=== PATIENT | male | born 1955 | race Two or more races ===

== ENCOUNTER 2024-07-08 07:23 | Inpatient (IN) | payer OTHER ==
[~2024-07-08] VITALS: Ht 180.3 cm; Wt 87.5 kg
[2024-07-08] MEDS ORDERED: ACETAZOLAMIDE500 M2 (07:37)
[2024-07-08] MEDS ORDERED: MORPHINE SULFATE 4 MG/ML VIAL IV ONE ×3 (08:45→20:45)
[2024-07-08 09:17] LABS: ABG PH 7.312 (7.35-7.45); ABG PO2 83.4 mmHg (80-100); ABG pCO2 31.1 mmHg (35-45); BASE EXCESS -9.5 mmol/l; BICARBONATE 15.4 mmol/l (23-25); SaO2 94.6 %; Tco2 16.3 mmol/l
[2024-07-08 09:53] LABS: HEMATOCRIT 46.2 % (39.0-48.0); HEMOGLOBIN 15.4 g/dL (13-16.00); MEAN CORPUSCULAR HGB CONC 33.3 g/dl (32.0-36.0); PLATELET COUNT 142 K/uL (150-450); RED BLOOD COUNT 5.31 M/uL (4.00-6.00); RED CELL DISTRIBUTION WIDTH 14.7 % (11.5-14.5)
[2024-07-08 10:11] LABS: BILIRUBIN TOTAL 1.07 mg/dL (0.3-1.2); CALCIUM 9.1 mg/dL (8.5-10.1); CREATININE SERUM 1.75 mg/dL (0.70-1.30); GFR 38.73; POTASSIUM 4.19 mEq/L (3.5-5.1)
[2024-07-08 10:13] LABS: allen test SATISFACTORY; o2 28 %; puncture site RADIAL LEFT
[2024-07-08 11:06] LABS: D DIMER 2.4 MG/L; INR 1.03; PARTIAL THROMBOPLASTIN TIME 30.3 SECONDS (22.0-34.0); PROTHROMBIN TIME 11.2 SECONDS (9.0-11.5)
[2024-07-08] MEDS ORDERED: CEFTRIAXONE SODIUM 2,000 MG VIAL IV ONE (11:45)
[2024-07-08] MEDS ORDERED: ENOXAPARIN SODIUM 60 MG/0.6 ML SYRINGE SUBCUTANEO ONE ×2 (12:00→12:30)
[2024-07-08] MEDS ORDERED: AZITHROMYCIN 500 MG VIAL IV ONE ×2 (12:00→12:30)
[2024-07-08] MEDS ORDERED: CEFTRIAXONE SODIUM 2,000 MG VIAL ONE (12:30)
[2024-07-08 16:16] LABS: PH,URINE 6.5 (5.0-8.0); URINE APPEARANCE Clear; URINE BILIRRUBIN Negative (NEGATIVE); URINE BLOOD Negative; URINE COLOR Yellow; URINE GLUCOSE Negative (NEGATIVE); URINE KETONE 15 (NEGATIVE); URINE LEUKOCYTE Negative; URINE NITRATE Negative; URINE PROTEIN Negative (NEGATIVE)
[2024-07-08 16:20] LABS: URINE BACTERIA 8.8 uL (0.0-1933); URINE EPITHELIAL CELLS 2.3 uL (0.0-38.8); URINE RBC 4.1 uL (0.0-20.8); URINE WBC 2.9 uL (0.0-23.2)
[2024-07-08] MEDS ORDERED: 0.9 % SODIUM CHLORIDE 1,000 ML IV ONE (17:30)
[2024-07-08] MEDS ORDERED: METHYLPREDNISOLONE SOD SUCC 40 MG VIAL IV SCH (21:12)
[2024-07-08] MEDS ORDERED: LEVALBUTEROL HCL 1.25 MG/3 ML SOLUTION IH SCH (21:12)
[2024-07-08] MEDS ORDERED: IPRATROPIUM BROMIDE 0.5 MG/2.5 ML AMPUL.NEB IH SCH (21:12)
[2024-07-08] MEDS ORDERED: ONDANSETRON HCL 4 MG in 0.9 % SODIUM CHLORIDE 50 ML IV PRN (21:15)
[2024-07-08] MEDS ORDERED: hydrALAZINE HCL 20 MG VIAL IV PRN (21:15)
[2024-07-08] MEDS ORDERED: ACETAMINOPHEN 500 MG GEL..CAP PO PRN (21:15)
[2024-07-08] MEDS ORDERED: 0.9 % SODIUM CHLORIDE 1,000 ML IV SCH (21:15)
[2024-07-08] MEDS ORDERED: MORPHINE SULFATE 4 MG/ML VIAL IV PRN (21:15)
[2024-07-08] MEDS ORDERED: METHYLPREDNISOLONE SOD SUCC 40 MG VIAL ONE (21:38)
[2024-07-08 22:04] VITALS: BP 154/87; O2SAT 99
[2024-07-08 23:12] VITALS: BP 127/82; O2SAT 99
[2024-07-09 06:07] LABS: ABG PH 7.303 (7.35-7.45); ABG PO2 88.8 mmHg (80-100); ABG pCO2 34.6 mmHg (35-45); BASE EXCESS -8.6 mmol/l; BICARBONATE 16.8 mmol/l (23-25); SaO2 95.3 %; Tco2 17.8 mmol/l
[2024-07-09 06:27] LABS: allen test SATISFACTORY; o2 32 %; puncture site RADIAL LEFT
[2024-07-09 08:53] LABS: PH,URINE 6.5 (5.0-8.0); URINE APPEARANCE Clear; URINE BILIRRUBIN Negative (NEGATIVE); URINE BLOOD Negative; URINE COLOR Yellow; URINE GLUCOSE Negative (NEGATIVE); URINE LEUKOCYTE Negative; URINE NITRATE Negative; URINE PROTEIN Negative (NEGATIVE)
[2024-07-09 08:57] LABS: URINE RBC 4.7 uL (0.0-20.8)
[2024-07-09 08:58] LABS: HEMATOCRIT 43.6 % (39.0-48.0); HEMOGLOBIN 14.7 g/dL (13-16.00); MEAN CELL VOLUME 86.8 fL (80.0-100.00); MEAN CORPUSCULAR HEMOGLOBIN 29.2 pg (27.00-32.0); MEAN CORPUSCULAR HGB CONC 33.7 g/dl (32.0-36.0); RED BLOOD COUNT 5.02 M/uL (4.00-6.00); RED CELL DISTRIBUTION WIDTH 14.3 % (11.5-14.5)
[2024-07-09] MEDS ORDERED: ENOXAPARIN SODIUM 40 MG/0.4 ML SYRINGE SUBCUTANEO SCH (09:00)
[2024-07-09] MEDS ORDERED: CEFTRIAXONE SODIUM 1,000 MG VIAL IV SCH (09:00)
[2024-07-09] MEDS ORDERED: AZITHROMYCIN 500 MG in 0.9 % SODIUM CHLORIDE 250 ML IV SCH (09:00)
[2024-07-09] MEDS ORDERED: PANTOPRAZOLE SODIUM 40 MG in 0.9 % SODIUM CHLORIDE 8 ML IV PUSH SCH (09:00)
[2024-07-09] MEDS ORDERED: BUDESONIDE 0.5 MG/2 ML AMPUL.NEB IH SCH (09:00)
[2024-07-09 09:29] LABS: PROTHROMBIN TIME 10.9 SECONDS (9.0-11.5)
[2024-07-09 09:33] VITALS: BP 112/67
[2024-07-09 09:38] LABS: PLATELET COUNT 107 K/uL (150-450)
[2024-07-09 09:42] LABS: ALBUMIN 3.3 gm/dL (3.4-5.0); BILIRUBIN TOTAL 0.55 mg/dL (0.3-1.2); BILIRUBIN,CONJUGATED 0.14 mg/dL (0.0-0.2); BILIRUBIN,UNCONJUGATED 0.41 mg/dL (0.0-0.6); CALCIUM 8.3 mg/dL (8.5-10.1); CHOL HDL RATIO 5.2 (0-5.0); CREATININE SERUM 1.4 mg/dL (0.70-1.30); GFR 50.1; GLOBULINA 3.1 G/DL (2.4-3.5); POTASSIUM 4.17 mEq/L (3.5-5.1); TOTAL PROTEIN 6.4 gm/dL (6.4-8.2)
[2024-07-09 09:45] LABS: C-REACTIVE PROTEIN 11.6 MG/DL (0.00-0.29); PARTIAL THROMBOPLASTIN TIME 38.1 SECONDS (22.0-34.0)
[2024-07-09 09:46] LABS: ERYTHROCYTE SEDIMENTATION RATE 42 mm/hr
[2024-07-09 09:52] LABS: URINE BACTERIA 2.5 uL (0.0-1933); URINE EPITHELIAL CELLS 0.1 uL (0.0-38.8); URINE KETONE 40 (NEGATIVE); URINE WBC 1.2 uL (0.0-23.2)
[2024-07-09 20:33] VITALS: BP 107/64; O2SAT 97
[2024-07-10 02:01] VITALS: BP 93/55; O2SAT 100
[2024-07-10 08:38] LABS: BILIRUBIN TOTAL 0.41 mg/dL (0.3-1.2); CALCIUM 8.5 mg/dL (8.5-10.1); CREATININE SERUM 1.52 mg/dL (0.70-1.30); GFR 45.56; GLOBULINA 3.1 G/DL (2.4-3.5); POTASSIUM 5.48 mEq/L (3.5-5.1); TOTAL PROTEIN 6.1 gm/dL (6.4-8.2)
[2024-07-10] MEDS ORDERED: CEFTRIAXONE SODIUM 1,000 MG VIAL IV SCH (09:00)
[2024-07-10 09:47] VITALS: BP 113/69
[2024-07-10] MEDS ORDERED: CITRIC ACID/SODIUM CITRATE 15 ML BLIST.PACK PO SCH (13:00)
[2024-07-10] MEDS ORDERED: SODIUM POLYSTYRENE SULFONATE 30G/8 TSP PO SCH (14:00)
[2024-07-10 16:00] VITALS: BP 132/71
[2024-07-10] MEDS ORDERED: METHYLPREDNISOLONE SOD SUCC 40 MG VIAL IV SCH (17:00)
[2024-07-11 02:42] VITALS: BP 125/77
[2024-07-11 09:39] LABS: HEMATOCRIT 42.6 % (39.0-48.0); HEMOGLOBIN 13.8 g/dL (13-16.00); MEAN CELL VOLUME 88.1 fL (80.0-100.00); MEAN CORPUSCULAR HEMOGLOBIN 28.7 pg (27.00-32.0); MEAN CORPUSCULAR HGB CONC 32.5 g/dl (32.0-36.0); PLATELET COUNT 144 K/uL (150-450); RED BLOOD COUNT 4.83 M/uL (4.00-6.00); RED CELL DISTRIBUTION WIDTH 14.7 % (11.5-14.5)
[2024-07-11 09:51] VITALS: BP 147/78; O2SAT 98
[2024-07-11] MEDS ORDERED: CITRIC ACID/SODIUM CITRATE 30 ML BLIST.PACK PO NR (10:00)
[2024-07-11 11:00] LABS: ALBUMIN 3.2 gm/dL (3.4-5.0); BILIRUBIN TOTAL 0.38 mg/dL (0.3-1.2); CALCIUM 8.7 mg/dL (8.5-10.1); CREATININE SERUM 1.67 mg/dL (0.70-1.30); GFR 40.87; GLOBULINA 2.7 G/DL (2.4-3.5); POTASSIUM 3.85 mEq/L (3.5-5.1); TOTAL PROTEIN 5.9 gm/dL (6.4-8.2)
[2024-07-11 18:56] VITALS: BP 154/92
== END 2024-07-11 19:52 | disposition home or self-care (01) | DRG 194 ==
LOC: ER 07:25 → SEC-K 21:50 → MEDJ 21:50
PROVIDERS: General Practice; Internal Medicine; ADMIT Internal Medicine; ATTEND Internal Medicine
PROC: B020ZZZ Computerized Tomography (CT Scan) of Brain (ICD-10-PCS; 2024-07-08)
PROC: BB24ZZZ Computerized Tomography (CT Scan) of Bilateral Lungs (ICD-10-PCS; 2024-07-08)
PROC: BB24YZZ Computerized Tomography (CT Scan) of Bilateral Lungs using Other Contrast (ICD-10-PCS; 2024-07-08)
PROC: 4A12X4Z Monitoring of Cardiac Electrical Activity, External Approach (ICD-10-PCS; 2024-07-08)
PROC: 3E0F7GC Introduction of Other Therapeutic Substance into Respiratory Tract, Via Natural or Artificial Opening (ICD-10-PCS; principal; 2024-07-09)
DX: J18.9 Pneumonia, unspecified organism (principal); J91.8 Pleural effusion in other conditions classified elsewhere; N17.9 Acute kidney failure, unspecified; J98.11 Atelectasis; D69.6 Thrombocytopenia, unspecified; E87.5 Hyperkalemia; R55 Syncope and collapse; N18.9 Chronic kidney disease, unspecified; C01 Malignant neoplasm of base of tongue; H81.03 Meniere's disease, bilateral; Z92.21 Personal history of antineoplastic chemotherapy; Z87.891 Personal history of nicotine dependence